=== PATIENT | male | born 1985 | race Two or more races ===

== ENCOUNTER 2017-05-11 11:15 | Emergency (ER) | payer OTHER ==
[~2017-05-11] VITALS: Ht 170.2 cm; Wt 72.6 kg
[2017-05-11 11:20] VITALS: BP 125/62
== END 2017-05-11 13:32 ==
LOC: ER 11:18
DX: Z02.89 Encounter for other administrative examinations (principal); F19.10 Other psychoactive substance abuse, uncomplicated; F17.200 Nicotine dependence, unspecified, uncomplicated; W18.09XA Striking against other object with subsequent fall, initial encounter; Y93.02 Activity, running; Y92.89 Other specified places as the place of occurrence of the external cause; Y99.8 Other external cause status
CPT/HCPCS: 71111; 99284; 99406; A4606; Z7610